=== PATIENT | male | born 1980 | race Caucasian/White ===

== ENCOUNTER 2016-10-30 08:32 | Outpatient (RCR) | payer OTHER ==
[2013-03-17 09:18] VITALS: BP 109/70
[~2016-10-30 08:32] MED LIST: DOXEPIN25 MG PO; OMEGA 31000 MG PO
== END 2017-01-02 11:10 | disposition home or self-care (01) ==
LOC: PT 08:32
DX: M25.511 Pain in right shoulder (principal)

== ENCOUNTER → 2017-03-29 | Outpatient (CLI) | payer OTHER ==
[2013-03-17 09:18] VITALS: BP 109/70
== END ==
LOC: RAD 09:01
DX: M25.562 Pain in left knee (principal)

== ENCOUNTER → 2017-04-15 | Outpatient (CLI) | payer OTHER ==
[2013-03-17 09:18] VITALS: BP 109/70
== END ==
LOC: PT 09:50
DX: M25.811 Other specified joint disorders, right shoulder (principal)

== ENCOUNTER 2017-05-07 16:00 | Outpatient (RCR) | payer OTHER ==
[2013-03-17 09:18] VITALS: BP 109/70
== END 2017-06-06 16:59 | disposition home or self-care (01) ==
LOC: PT 16:00
DX: Z47.89 Encounter for other orthopedic aftercare (principal)

== ENCOUNTER → 2018-07-18 | Outpatient (CLI) | payer BC ==
[~2018-07-18] VITALS: Ht 172.7 cm; Wt 85.9 kg
[2018-07-18 11:30] VITALS: BP 123/73
[2018-07-18 11:58] LABS: HEMATOCRIT 46.3 % (42.0-52.0); HEMOGLOBIN 15.8 g/dL (13.5-18.0); LYMPH# 1.6 (1.50-4.00); MEAN CELL VOLUME 89 fl (78-100); MEAN CORPUSCULAR HEMOGLOBIN 30 pg (27-31); MEAN CORPUSCULAR HGB CONC 34 g/dL (33-37); MEAN PLATELET VOLUME 9.5 fl (7.4-10.4); MONO # 0.8 (0.20-0.80); NEU # 7.4 (1.40-6.50); PLATELET COUNT 283 K/mm3 (130-400); RED BLOOD COUNT 5.19 M/mm3 (4.20-5.60); RED CELL DISTRIBUTION WIDTH 12.7 % (11.5-14.5); WHITE BLOOD COUNT 9.9 K/mm3 (4.8-10.8)
[2018-07-18 12:02] LABS: ALBUMIN 4.9 g/dL (3.5-5.0); CALCIUM 9.9 mg/dL (8.4-10.2); POTASSIUM 3.8 mmol/L (3.6-5.0); TOTAL BILIRUBIN 2.9 mg/dL (0.2-1.3); TOTAL PROTEIN 7.9 g/dL (6.3-8.2)
[2018-07-18 14:02] VITALS: BP 119/74
== END ==
LOC: AMSURD 11:23
PROVIDERS: Nurse Practitioner Primary Care
DX: R11.2 Nausea with vomiting, unspecified (principal)
CPT/HCPCS: C9113; J1885; J2550; J7030

== ENCOUNTER → 2018-10-29 | Outpatient (CLI) | payer BC ==
[2018-07-18 14:02] VITALS: BP 119/74
[~2018-10-29] MED LIST changes: +PROMETHAZINE12.5 M5
[2018-10-29 14:11] LABS: EOS % 0.6 % (0.0-4.0); HEMATOCRIT 45.9 % (42.0-52.0); HEMOGLOBIN 15.7 g/dL (13.5-18.0); LYMPH# 1.8 (1.50-4.00); MEAN CELL VOLUME 89 fl (78-100); MEAN CORPUSCULAR HEMOGLOBIN 30 pg (27-31); MEAN CORPUSCULAR HGB CONC 34 g/dL (33-37); MEAN PLATELET VOLUME 9.6 fl (7.4-10.4); MONO # 0.6 (0.20-0.80); NEU # 3.9 (1.40-6.50); PLATELET COUNT 266 K/mm3 (130-400); RED BLOOD COUNT 5.17 M/mm3 (4.20-5.60); RED CELL DISTRIBUTION WIDTH 12.6 % (11.5-14.5); WHITE BLOOD COUNT 6.3 K/mm3 (4.8-10.8)
[2018-10-29 14:27] LABS: ALBUMIN 4.6 g/dL (3.5-5.0); CALCIUM 9.4 mg/dL (8.4-10.2); POTASSIUM 3.9 mmol/L (3.6-5.0); TOTAL PROTEIN 7.3 g/dL (6.3-8.2)
[2018-10-29 14:37] LABS: PH-URINE 5.5 (5.0 - 8.0); URINE APPEARANCE CLEAR; URINE COLOR YELLOW; URINE GLUCOSE NEGATIVE (NEGATIVE); URINE KETONE NEGATIVE (NEGATIVE); URINE PROTEIN(semi-quant) TRACE mg/dL (NEGATIVE)
[2018-10-29 14:38] LABS: URINE BILIRUBIN NEGATIVE (NEGATIVE); URINE BLOOD TRACE (NEGATIVE); URINE LEUKOCYTE ESTERASE TRACE (NEGATIVE); URINE MUCUS PRESENT (NOT PRESENT); URINE NITRATE NEGATIVE (NEGATIVE); URINE UROBILINOGEN NORMAL (NORMAL)
[2018-10-29 17:30] LABS: PH-URINE 5.5 (5.0 - 8.0); URINE APPEARANCE CLEAR; URINE COLOR YELLOW; URINE PROTEIN(semi-quant) TRACE mg/dL (NEGATIVE)
[2018-10-29 17:31] LABS: URINE BILIRUBIN NEGATIVE (NEGATIVE); URINE BLOOD NEGATIVE (NEGATIVE); URINE GLUCOSE NEGATIVE (NEGATIVE); URINE KETONE 1+ (NEGATIVE); URINE LEUKOCYTE ESTERASE NEGATIVE (NEGATIVE); URINE NITRATE NEGATIVE (NEGATIVE); URINE UROBILINOGEN NORMAL (NORMAL)
[2018-10-29 17:32] LABS: URINE WBC 0-1 /hpf (0-3)
== END ==
LOC: LAB 13:58
PROVIDERS: Family Medicine
DX: E86.0 Dehydration (principal); R11.0 Nausea; R19.7 Diarrhea, unspecified; E80.6 Other disorders of bilirubin metabolism; F41.9 Anxiety disorder, unspecified

== ENCOUNTER → 2018-10-29 | Outpatient (CLI) | payer BC ==
[~2018-10-29] VITALS: Ht 172.7 cm; Wt 81.8 kg
[2018-10-29 15:46] VITALS: BP 100/72; BP 114/64
[2018-10-29 16:49] VITALS: BP 115/63
[2018-10-29 17:00] VITALS: BP 115/63
== END ==
LOC: AMSURD 15:16
DX: E86.0 Dehydration (principal); R11.0 Nausea; R19.7 Diarrhea, unspecified; R10.11 Right upper quadrant pain; E80.6 Other disorders of bilirubin metabolism
CPT/HCPCS: J7030

== ENCOUNTER → 2018-11-14 | Outpatient (CLI) | payer BC ==
[2018-10-29 17:00] VITALS: BP 115/63
[2018-11-14 15:13] LABS: ALBUMIN 4.4 g/dL (3.5-5.0); DIRECT BILIRUBIN 0.4 mg/dL (0.0-0.4); TOTAL BILIRUBIN 2.1 mg/dL (0.2-1.3); TOTAL PROTEIN 6.8 g/dL (6.3-8.2)
== END ==
LOC: LAB 13:59
PROVIDERS: Family Medicine
DX: R11.0 Nausea (principal); E80.6 Other disorders of bilirubin metabolism

== ENCOUNTER → 2018-11-27 | Outpatient (CLI) | payer BC ==
[2018-10-29 17:00] VITALS: BP 115/63
== END ==
LOC: RAD 07:17
DX: R10.11 Right upper quadrant pain (principal); R94.5 Abnormal results of liver function studies; R11.0 Nausea

== ENCOUNTER → 2018-12-04 | Outpatient (CLI) | payer BC ==
[2018-10-29 17:00] VITALS: BP 115/63
[2018-12-04 13:17] LABS: EOS # 0.1 (0.04-0.40); EOS % 1.4 % (0.0-4.0); HEMATOCRIT 46.1 % (42.0-52.0); HEMOGLOBIN 15.4 g/dL (13.5-18.0); LYMPH# 1.5 (1.50-4.00); MEAN CELL VOLUME 90 fl (78-100); MEAN CORPUSCULAR HEMOGLOBIN 30 pg (27-31); MEAN CORPUSCULAR HGB CONC 33 g/dL (33-37); MEAN PLATELET VOLUME 10.2 fl (7.4-10.4); MONO # 0.4 (0.20-0.80); NEU # 2.4 (1.40-6.50); PLATELET COUNT 235 K/mm3 (130-400); RED BLOOD COUNT 5.12 M/mm3 (4.20-5.60); RED CELL DISTRIBUTION WIDTH 12.7 % (11.5-14.5); WHITE BLOOD COUNT 4.4 K/mm3 (4.8-10.8)
== END ==
LOC: LAB 12:33
DX: K82.8 Other specified diseases of gallbladder (principal)

== ENCOUNTER → 2019-10-01 | Outpatient (CLI) | payer BC ==
[2018-10-29 17:00] VITALS: BP 115/63
[2019-10-01 09:33] LABS: POTASSIUM 4.5 mmol/L (3.5-5.1)
[2019-10-01 09:34] LABS: CALCIUM 9.6 mg/dL (8.3-10.5)
== END ==
LOC: LAB 09:03
PROVIDERS: Family Medicine
DX: F41.9 Anxiety disorder, unspecified (principal); R11.0 Nausea

== ENCOUNTER → 2020-09-24 | Outpatient (CLI) | payer BC ==
[2018-10-29 17:00] VITALS: BP 115/63
== END ==
LOC: LAB 14:59
DX: U07.1 COVID-19 (principal)

== ENCOUNTER → 2020-10-26 | Outpatient (CLI) | payer OTHER, BC ==
[2018-10-29 17:00] VITALS: BP 115/63
== END ==
LOC: RAD 09:42
DX: M25.562 Pain in left knee (principal)

== ENCOUNTER 2020-11-21 09:30 | Outpatient (RCR) | payer OTHER, BC ==
[2018-10-29 17:00] VITALS: BP 115/63
== END 2020-12-02 17:00 | disposition home or self-care (01) ==
LOC: PT
DX: M25.562 Pain in left knee (principal)

== ENCOUNTER 2021-04-24 08:39 | Outpatient (RCR) | payer BC | END 2021-07-23 | disposition home or self-care (01) | LOC: PT | DX: M25.511 Pain in right shoulder (principal) ==

== ENCOUNTER 2021-07-25 17:21 | Outpatient (RCR) | payer BC | END 2021-09-22 23:59 | disposition home or self-care (01) | LOC: PT 17:21 | DX: M25.511 Pain in right shoulder (principal) ==